=== PATIENT | female | born 1970 | race Caucasian/White ===

== ENCOUNTER → 2016-12-30 | Outpatient (CLI) | payer BC ==
--- NOTE | 2016-12-30 16:35 | KCIC ---
Bilateral digital screening mammograms with CAD: HISTORY Routine screening COMPARISON Comparison is made to previous examinations dated 12/11/2015 and 11/20/2014. FINDINGS Breast density category C. The skin and nipples show no abnormalities. No abnormal lymph nodes are seen in the axilla. The breast parenchyma shows heterogeneous density. There are no dominant masses, suspicious calcifications or architectural distortions. IMPRESSION No evidence of malignancy. Recommend routine annual mammographic screening. This study was interpreted with the benefit of Computerized Aided Detection (CAD). Mammography is not 100% sensitive in detecting breast cancer. Therefore, a self breast exam and a clinical breast exam are very important. A negative mammogram does not negate a clinically suspicious finding and should not result in a delay in biopsying a clinically suspicious abnormality. BI-RADS category 1. Negative. This patient's information has been entered into a reminder system for the patient to be notified with the results of this examination and a target date for her next mammograms. Electronically signed by: Jennifer Leslie MD (Dec 30, 2016 16:34:08)
== END | disposition home or self-care (01) ==
LOC: KCIC MAMMO 13:38
PROVIDERS: ATTEND Obstetrics & Gynecology
DX: Z12.31 Encounter for screening mammogram for malignant neoplasm of breast (principal)
CPT/HCPCS: G0202; 77067

== ENCOUNTER → 2018-02-23 | Outpatient (CLI) | payer BC | END | disposition home or self-care (01) | LOC: KCIC MAMMO 13:42 | DX: Z12.31 Encounter for screening mammogram for malignant neoplasm of breast (principal) | CPT/HCPCS: 77063; 77067 ==

== ENCOUNTER → 2018-03-01 | Outpatient (CLI) | payer BC | END | disposition home or self-care (01) | LOC: KCIC US 07:45 | DX: N63.23 Unspecified lump in the left breast, lower outer quadrant (principal) | CPT/HCPCS: 76641 ==

== ENCOUNTER → 2018-03-16 | Outpatient (CLI) | payer BC | END | disposition home or self-care (01) | LOC: US 08:14 | DX: N60.12 Diffuse cystic mastopathy of left breast (principal); N60.42 Mammary duct ectasia of left breast; N60.82 Other benign mammary dysplasias of left breast; R92.8 Other abnormal and inconclusive findings on diagnostic imaging of breast | CPT/HCPCS: 19081; 19083; 76942; 77065; 88305; C1713 ==

== ENCOUNTER → 2019-05-31 | Outpatient (CLI) | payer BC ==
--- NOTE | 2019-05-31 15:22 | KCIC ---
Bilateral digital screening mammograms with 3-D tomosynthesis: Reason for examination: Routine screening. Comparison is made to previous studies dated 02/23/2018 and 12/30/2016. Bilateral mammograms in CC and oblique projections were obtained with 2-D imaging and 3-D tomosynthesis imaging on a Siemens Inspiration unit and reviewed on the workstation. Interpretation was made with the benefit of CAD. The skin and nipples show no abnormalities. No abnormal axillary lymph nodes are seen. The breast parenchyma is heterogeneously dense. (Breast density: Category C.) There appears to be small 8 mm nodular density developing at the 4:00 B position 6 cm from the nipple of the right breast. This should be further evaluated with ultrasound. There are no other dominant masses, suspicious calcifications or architectural distortion. Biopsy clip remains present on the left. Impression: Small nodular density at the 4:00 B position of the right breast measuring approximately 8 mm in greatest dimension and located 6 cm from the nipple. Recommend further evaluation with ultrasound. Your patient's mammogram demonstrates that she has dense breast tissue (breast density category C or D), which could hide abnormalities, and if she has other risk factors for breast cancer that have been identified, she might benefit from supplemental screening tests that may be suggested by you as her ordering physician. Dense breast tissue, in and of itself, is a relatively common condition. Therefore, this information is not provided to cause undue concern, but rather to raise your awareness and to promote discussion with your patient regarding the presence of other risk factors, in addition to dense breast tissue. Your patient's mammography results will be sent to her. BI-RAD Category 0: Incomplete. Needs additional imaging evaluation. "Our facility is accredited by the [employer]ammography [employer]." This patient's information has been entered into a reminder system for the patient to be notified with the results of her examination and a target date for the next mammogram. Electronically signed by: Regi Leslie MD (05/31/2019 3:19 PM) [id number]
== END | disposition home or self-care (01) ==
LOC: KCIC MAMMO 13:31
PROVIDERS: ATTEND Obstetrics & Gynecology
DX: Z12.31 Encounter for screening mammogram for malignant neoplasm of breast (principal)
CPT/HCPCS: 77063; 77067

== ENCOUNTER → 2019-06-13 | Outpatient (CLI) | payer BC ==
--- NOTE | 2019-06-13 17:35 | KCIC ---
Right breast ultrasound: Reason for examination: Nodular density on screening mammogram. Comparison is made to mammographic exam dated 05/31/2019. Ultrasound examination was performed with attention to the lower outer quadrant and axilla. In the 4:00 position 3 cm from the nipple, there is a 5 mm hypoechoic fibrocystic type lesion in parallel orientation. No other cystic or solid lesions are seen. No abnormal appearing lymph nodes are seen in the axilla. IMPRESSION: Small benign-appearing fibrocystic type lesion at the 4:00 position. No suspicious abnormality seen. Recommend reevaluation with mammograms and ultrasound in 6 months. BI-RADS Category 3: Probably Benign. "Our facility is accredited by the [employer]ammography [employer]." This patient's information has been entered into a reminder system for the patient to be notified with the results of her examination and a target date for the next mammogram. Electronically signed by: Regi Leslie MD (06/13/2019 5:32 PM) [id number]
== END | disposition home or self-care (01) ==
LOC: KCIC US 09:51
PROVIDERS: ATTEND Obstetrics & Gynecology
DX: N64.89 Other specified disorders of breast (principal)
CPT/HCPCS: 76641

== ENCOUNTER → 2020-02-27 | Outpatient (CLI) | payer BC ==
--- NOTE | 2020-02-27 13:44 | RAD ---
DATE: 02/27/2020 12:18 PM EXAM: DIGITAL DIAGNOSTIC mammogram RT, BREAST ultrasound RIGHT HISTORY: Six-month follow-up probably benign nodule in the lower inner right breast. COMPARISON: 05/31/2019, 02/23/2018 Technique: CC and MLO views of the right breast were obtained with 2-D and 3-D technique and reviewed with computer-aided detection. Thereafter, targeted ultrasound of the lower inner quadrant right breast was performed. FINDINGS: Breast Density: SCATTERED The breast parenchyma shows scattered fibroglandular densities. Breast parenchyma level B Circumscribed oval nodule in the medial right breast is again demonstrated, measuring 6 mm on mammography. Targeted ultrasound of the medial right breast identifies a 6 mm oval circumscribed hypoechoic nodule at the 4:00 position 3 cm from the nipple shows no significant interval change from the previous right breast ultrasound. No suspicious masses, microcalcifications or architectural distortion is present to suggest malignancy in the right breast. . IMPRESSION: Benign findings on right diagnostic mammogram and ultrasound. No evidence of malignancy BI-RADS CATEGORY: 2 BENIGN FINDING(S) RECOMMENDED FOLLOW-UP: 3M 3 MONTH FOLLOW-UP Annual screening mammography is recommended, unless clinically indicated sooner based on symptoms or change in physical exam. She will next be due for screening in 3 months. PQRS compliance statement: Patient information was entered into a reminder system with a target due date 06/01/2020 for the next mammogram. Mammography is a sensitive method for finding small breast cancers, but it does not detect them all and is not a substitute for careful clinical examination. A negative mammogram does not negate a clinically suspicious finding and should not result in delay in biopsying a clinically suspicious abnormality. "Our facility is accredited by the [employer] Mammography [employer]."
== END | disposition home or self-care (01) ==
LOC: MAMMO 12:14
PROVIDERS: ATTEND Obstetrics & Gynecology
DX: R92.8 Other abnormal and inconclusive findings on diagnostic imaging of breast (principal)
CPT/HCPCS: 76641; 77065

== ENCOUNTER → 2020-06-06 | Outpatient (CLI) | payer BC ==
--- NOTE | 2020-06-06 16:33 | KCIC ---
EXAM: Bilateral digital screening mammogram with tomosynthesis. HISTORY: 49-year-old female presents for screening mammography. TECHNIQUE: Full-field digital craniocaudal and mediolateral oblique 2D and 3D tomosynthesis images of both breasts are obtained for evaluation. Computer aided detection with [employer]D software version 9.3 was applied. COMPARISON: 02/27/2020 and 05/31/2019 BREAST PARENCHYMAL DENSITY: Level B - Scattered fibroglandular densities. FINDINGS: There is no new suspicious mass, microcalcification or region of architectural distortion. There are benign areas of nodularity and asymmetry within both breasts. IMPRESSION: BI-RADS Category 2: Benign finding(s). RECOMMENDATION: Annual mammography is recommended. If your mammogram demonstrates that you have dense breast tissue, which could hide abnormalities, and if you have other risk factors for breast cancer that have been identified, you might benefit from supplemental screening tests that may be suggested by your ordering physician. Dense breast tissue, in and of itself, is a relatively common condition. This information is not provided to cause undue concern, but rather to raise your awareness and to promote discussion with your physician regarding the presence of other risk factors, in addition to dense breast tissue. A report of your mammography results will be sent to you and your physician. You should contact your physician if you have any questions or concerns regarding this report. Mammography is a sensitive method for finding small breast cancers, but it does not detect them all and is not a substitute for careful clinical examination. A negative mammogram does not negate a clinically suspicious finding and should not result in delay in biopsying a clinically suspicious abnormality. PQRS compliance statement - Patient information was entered into a reminder system with a target due date for the next mammogram. "Our facility is accredited by the [employer] Mammography [employer]." Electronically signed by: Charo Lozada MD (06/06/2020 4:31 PM) [id number]
== END | disposition home or self-care (01) ==
LOC: KCIC MAMMO 15:45
PROVIDERS: ATTEND Obstetrics & Gynecology
DX: Z12.31 Encounter for screening mammogram for malignant neoplasm of breast (principal)
CPT/HCPCS: 77063; 77067

== ENCOUNTER → 2021-09-25 | Outpatient (CLI) | payer BC ==
--- NOTE | 2021-09-25 15:22 | KCIC ---
Bilateral digital screening mammograms with 3-D tomosynthesis: Reason for examination: Routine screening. Comparison is made to previous studies dated back to 12/11/2015. Bilateral mammograms in CC and oblique projections were obtained with 2-D imaging and 3-D tomosynthes is imaging on a Siemens Inspiration unit and reviewed on the workstation. Interpretation was made sarah goodman the benefit of CAD. The skin and nipples show no abnormalities. No abnormal axillary lymph nodes are seen. The breast par enchyma is heterogeneously dense. (Breast density: Category C.) There continues to be asymmetric pare nchyma upper outer quadrant of the right breast which is unchanged. There are no new dominant masses, suspicious calcifications or architectural distortion. Biopsy clip remains present on the left. Impression: No evidence of malignancy. Recommend routine screening. Your patient's mammogram demonstrates that she has dense breast tissue (breast density category C or D), which could hide abnormalities, and if she has other risk factors for breast cancer that have bee n identified, she might benefit from supplemental screening tests that may be suggested by you as her ordering physician. Dense breast tissue, in and of itself, is a relatively common condition. Therefo re, this information is not provided to cause undue concern, but rather to raise your awareness and t o promote discussion with your patient regarding the presence of other risk factors, in addition to d ense breast tissue. Your patient's mammography results will be sent to her. BI-RAD Category 2: Benign. "Our facility is accredited by the [employer] Mammography [employer]." This patient's information has been entered into a reminder system for the patient to be notified wit h the results of her examination and a target date for the next mammogram. Electronically signed by: Regi Leslie MD (09/25/2021 3:20 PM) [id number]
== END ==
LOC: KCIC MAMMO 13:36
PROVIDERS: ATTEND Family Medicine
DX: Z12.31 Encounter for screening mammogram for malignant neoplasm of breast (principal)
CPT/HCPCS: 77063; 77067

== ENCOUNTER → 2021-11-18 | Outpatient (CLI) | payer BC ==
--- NOTE | 2021-11-18 14:53 | KCIC ---
EXAM: CT CHEST WITHOUT CONTRAST (LDCT LUNG CANCER SCREENING). HISTORY: Risk factors for pulmonary malignancy. Cigarette smoking. TECHNIQUE: CT of the chest was performed without intravenous contrast using a low-dose lung screening protocol. Findings analysis is based on ACR Lung-RADS v1.1. *One or more of the following individual ized dose reduction techniques were utilized for this examination: 1. Automated exposure control. 2. Adjustment of the mA and/or kV according to patient size. 3. Use of iterative reconstruction technique. COMPARISON: None. FINDINGS: The heart is normal in size. The aorta is normal in caliber. There is no lymphadenopathy. T here is no pneumothorax or pleural effusion. There is bilateral basilar linear atelectasis or scarrin g. There is bilateral apical pleural parenchymal scarring. There is a 3 mm nodule within the medial r ight upper lobe (series 6, image 141). This is an endobronchial and may be due to uncleared secretion s or a mucous plug. There is a similar-appearing 3 mm endobronchial nodule within the medial right up per lobe (series 6, image 165). There is no acute finding involving the upper abdomen. There is no ac ashia or suspicious osseous finding. IMPRESSION: 1. 3 mm nodules within the right upper lobe. These appear to be endobronchial and may be due to mucou s plugs or uncleared secretions. Lung RADS category 2: Follow-up with a low dose lung cancer screenin g CT in 12 months is recommended. 2. Biapical and basilar pleural parenchymal scarring. Electronically signed by: Charo Lozada MD (11/18/2021 2:50 PM) [id number]
== END ==
LOC: KCIC CT 13:06
PROVIDERS: ATTEND Nurse Practitioner Acute Care
DX: R91.1 Solitary pulmonary nodule (principal); F17.210 Nicotine dependence, cigarettes, uncomplicated
CPT/HCPCS: 71271